=== PATIENT | female | born 1970 | race African-American/Black ===

== ENCOUNTER 2019-03-17 19:40 | Emergency (ER) | payer OTHER ==
[~2019-03-17] VITALS: Ht 167.6 cm; Wt 60.8 kg
[2019-03-17] MEDS ORDERED: KETOROLAC TROMETHAMINE 60 MG/2 ML VIAL IM ONE (21:00)
--- NOTE | 2019-03-17 21:35 | Diagnostic Imaging Report ---
Examination: CT CERVICAL SPINE WO CONTRAST HISTORY:Left arm pain and numbness. COMPARISON:None. TECHNIQUE: Multidetector helical axial images were obtained without contrast from the foramen magnum to T1. Coronal and sagittal reformatted images were done. Bone and soft tissue windows were evaluated. Dose modulation, iterative reconstruction, and/or weight based adjustment of the mA/kV was utilized to reduce the radiation dose to as low as reasonably achievable. FINDINGS: Alignment:Normal alignment with straightening of normal lordosis. Vertebrae: Normal height and density. No acute fracture, infection or neoplasm. Disc space heights: Normal height. Caliber of spinal canal: Developmentally normal. Posterior fossa and craniocervical junction: Foramen magnum patent. No Chiari 1 malformation. Soft tissues: No abnormality. 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 No left foraminal or canal stenosis. Visualized lung apices: No abnormalities. IMPRESSION: 1. No acute abnormalities. 2. Degenerative changes as above. Signed by: Dr. Guillermina Cantrell M.D. on 03/17/2019 9:33 PM
[2019-03-17] MEDS ORDERED: ROBAXIN-750750 MG PO (21:43)
[2019-03-17 21:51] VITALS: BP 104/83
== END 2019-03-17 21:52 | disposition home or self-care (01) ==
LOC: ER 19:40
DX: M54.12 Radiculopathy, cervical region (principal)
CPT/HCPCS: 72125; 99283; J1885